=== PATIENT | female | born 1975 | race Caucasian/White ===

== ENCOUNTER → 2023-12-21 13:26 | Outpatient (REF) | payer BC, SELFPAY | LOC: WDC 13:26 | PROVIDERS: ATTENDING PHYSICIAN Nurse Practitioner Adult Health; FAMILY PHYSICIAN Nurse Practitioner Adult Health | DX: Z12.31 Encounter for screening mammogram for malignant neoplasm of breast (principal) | CPT/HCPCS: 77063; 77067 ==

== ENCOUNTER → 2024-02-29 08:00 | Outpatient (REF) | payer BC, SELFPAY | LOC: WDC 08:00 | PROVIDERS: ATTENDING PHYSICIAN Nurse Practitioner Adult Health; FAMILY PHYSICIAN Nurse Practitioner Adult Health | DX: R92.2 Inconclusive mammogram (principal) | CPT/HCPCS: 76641 ==

== ENCOUNTER → 2025-02-24 18:46 | Outpatient (REF) | payer BC, SELFPAY | LOC: WDC 18:46 | PROVIDERS: ATTENDING PHYSICIAN Nurse Practitioner Adult Health; FAMILY PHYSICIAN Nurse Practitioner Adult Health | DX: Z12.31 Encounter for screening mammogram for malignant neoplasm of breast (principal) | CPT/HCPCS: 77063; 77067 ==

== ENCOUNTER 2025-03-16 06:24 | Day surgery (SDC) | payer BC, SELFPAY | END 2025-03-16 14:11 | disposition home or self-care (01) | LOC: GI 06:24 | PROVIDERS: ATTENDING PHYSICIAN Internal Medicine Gastroenterology; FAMILY PHYSICIAN Nurse Practitioner Adult Health | DX: Z12.11 Encounter for screening for malignant neoplasm of colon (principal); K64.8 Other hemorrhoids; D12.5 Benign neoplasm of sigmoid colon; D12.3 Benign neoplasm of transverse colon | CPT/HCPCS: 45380; 88305 ==